=== PATIENT | female | born 1960 | race Caucasian/White ===

== ENCOUNTER 2018-11-06 00:07 | Emergency (ER) | payer SELFPAY ==
[2018-11-06 00:27] LABS: #Basophils 0.1 thou/uL (0.0-0.2); #Eosinphils 0.1 thou/uL (0.0-0.7); #Lymphocytes 2.6 thou/uL (1.20-3.40); #Monocytes 0.6 thou/uL (0.11-0.59); #Neutrophils 4.3 thou/uL (1.40-6.50); %Eosinophils 1.7 % (0.0-10.0); %Lymphocytes 34.5 % (21.0-51.0); %Monocytes 7.2 % (0.0-10.0); %Neutrophils 55.6 % (42.0-75.0); Hemoglobin 13.1 g/dL (12.0-16.0); Mean Corpuscular Hemoglobin 31.2 pg (27.0-31.0); Mean Corpuscular Volume 94.3 fL (78.0-98.0); Mean Platelet Volume 7.4 fL (7.4-10.4); Platelet Count 248 thou/uL (130-400); RBC Distribution Width 11.4 % (11.5-14.5); White Blood Cell (WBC) Count 7.7 thou/uL (4.8-10.8)
[2018-11-06] MEDS ORDERED: Aspirin Chewable 81 MG TAB ONE (00:27)
[2018-11-06] MEDS ORDERED: Nitroglycerin 0.4 MG TAB 1 EACH ONE (00:35)
[2018-11-06 00:48] LABS: ALT (SGPT) 19 U/L (8-55); AST (SGOT) 17 U/L (5-34); Albumin 4.5 g/dL (3.5-5.0); Alkaline Phosphatase 84 U/L (40-150); Anion Gap 13 mmol/L (10-20); BUN (Urea Nitrogen) 25 mg/dL (9.8-20.1); Bilirubin, Total 0.4 mg/dL (0.2-1.2); Calc. Creatinine Clearance 0 mL/min (70-130); Calcium 9.9 mg/dL (7.8-10.44); Carbon Dioxide 29 mmol/L (22-29); Chloride 101 mmol/L (98-107); Estimated GFR-MDRD 60; Globulin 3.1 g/dL (2.4-3.5); Glucose 109 mg/dL (70-105); Potassium 3.7 mmol/L (3.5-5.1); Protein, Total 7.6 g/dL (6.0-8.3); Sodium 139 mmol/L (136-145)
[2018-11-06 01:06] LABS: Bilirubin Negative (Negative); Blood, Urine Negative (Negative); Clarity TURBID (Clear); Glucose, Urine (Dipstick) Negative (Negative); Leukocyte Small (Negative); Nitrite Negative (Negative); Protein, Urine (Dipstick) Negative (Neg-Trace); Specific Gravity, Urine 1.018 (1.002-1.036); Urobilinogen 0.2 mg/dL (0.2-1.0)
[2018-11-06 01:11] LABS: Bacteria/HPF None Seen HPF (None Seen); Hyaline Casts/LPF 0-3 HYALINE CAST LPF (0-3 Hyaline); Squamous Epithelial 0-3 HPF (0-3)
[2018-11-06] MEDS ORDERED: Milk Of Magnesia 30 ML UDCUP ONE (01:23)
[2018-11-06] MEDS ORDERED: Lidocaine Viscous Sol 2% 15 ml UD Cup ONE (01:24)
[2018-11-06] MEDS ORDERED: Pantoprazole 40 MG VIAL ONE (01:24)
[2018-11-06] MEDS ORDERED: Ketorolac Tromethamine 30 MG/ML VIAL ONE (01:52)
[2018-11-06] MEDS ORDERED: Morphine 2 MG/ML SYRINGE ONE (02:43)
--- NOTE | 2018-11-06 08:46 | RAD ---
RADIOGRAPH CHEST 1 VIEW: HISTORY: A 58-year-old female with chest pain. FINDINGS: There are no air space densities, pulmonary edema, pneumothorax, or cardiomegaly. The lateral costop hrenic angles are sharp. IMPRESSION: No acute cardiopulmonary findings. jn [] POS: [facility]
--- NOTE | 2018-11-06 08:52 | RAD ---
RADIOGRAPH ABDOMEN 1 VIEW: DATE: 11/06/2018. TIME: 1:49 a.m. HISTORY: A 58-year-old female with generalized abdominal pain. FINDINGS: Supine KUB. Nonobstructive bowel gas pattern. No evidence of organomegaly. Degenerative changes at lower lumbar spine. IMPRESSION: 1. Lower lumbar spondylosis. 2. No evidence of bowel obstruction. POS: [facility]
== END 2018-11-06 03:03 | disposition home or self-care (01) ==
LOC: ERS 00:07
DX: K20.9 Esophagitis, unspecified (principal); E78.5 Hyperlipidemia, unspecified; I10 Essential (primary) hypertension; F41.9 Anxiety disorder, unspecified; Z79.82 Long term (current) use of aspirin; Z79.899 Other long term (current) drug therapy
CPT/HCPCS: 71045; 74018; 80053; 81003; 81015; 83690; 83880; 84484; 85025; 87086; 93005; 96361; 96374; 96375; C9113; J1885; J2270